=== PATIENT | female | born 1950 | race African-American/Black ===

== ENCOUNTER 2023-12-01 13:11 | Emergency (ER) | payer MEDICARE ==
[~2023-12-01] VITALS: Ht 167.6 cm; Wt 76.2 kg
[2023-12-01 13:28] VITALS: O2SAT 97
[2023-12-01] MEDS ORDERED: KETOROLAC TROMETHAMINE 30 MG INJ ONE (13:34)
[2023-12-01] MEDS: KETOROLAC TROMETHAMINE 30 MG INJ IM ONE (13:35)
[2023-12-01] MEDS ORDERED: ASPI81TA31 PO (13:39)
[2023-12-01] MEDS ORDERED: FURO20TA4 PO (13:39)
[2023-12-01] MEDS ORDERED: ARIP20TA4 PO (13:39)
[2023-12-01] MEDS ORDERED: IBUP200C5 PO (13:39)
[2023-12-01] MEDS ORDERED: ATOR20TA PO (13:39)
[2023-12-01] MEDS ORDERED: HYDR-4209 PO (13:47)
[2023-12-01] MEDS ORDERED: CARI350T PO (13:47)
== END 2023-12-01 14:03 | disposition home or self-care (01) ==
LOC: ER 13:11
DX: M54.40 Lumbago with sciatica, unspecified side (principal); Z79.82 Long term (current) use of aspirin; Z79.899 Other long term (current) drug therapy
CPT/HCPCS: 99283; 96372; J1885; A4606; A4663